=== PATIENT | male | born 1930 | race American Indian/Alaskan Native ===

== ENCOUNTER 2016-08-06 07:53 | Inpatient (IN) | payer MEDICARE ==
[2016-08-06] MEDS ORDERED: NACL 0.9% 1000 ML 1,000 ML IV ONE (08:39)
[2016-08-06 09:43] LABS: Basophils % (Auto) 0.5 % (0.0-1.8); Eosinophils % (Auto) 3.5 % (0.0-4.3); Hematocrit 40.2 % (35.5-45.6); Hemoglobin 13.3 gm/dl (11.8-15.2); Mean Corpuscular HGB Conc 33 % (32-34); Mean Corpuscular Hemoglobin 34 pg (28-32); Mean Corpuscular Volume 102 fl (84-94); Platelet Count 121 K/mm3 (140-440); Red Blood Count 3.95 M/mm3 (3.65-5.03); Red Cell Distribution Width 13.2 % (13.2-15.2); White Blood Count 4.8 K/mm3 (4.5-11.0)
[2016-08-06 09:53] LABS: INR 1.09 (0.87-1.13)
[2016-08-06 09:54] LABS: Partial Thromboplastin Time 27.5 Sec. (24.2-36.6)
[2016-08-06 09:58] LABS: Alanine Aminotransferase 13 units/L (7-56); Albumin 3.6 g/dL (3.9-5); Albumin/Globulin Ratio 1.1 %; Alkaline Phosphatase 89 units/L (35-129); Anion Gap 14 mmol/L; Bilirubin,Total 0.6 mg/dL (0.1-1.2); Blood Urea Nitrogen 18 mg/dL (9-20); Calcium 9.7 mg/dL (8.4-10.2); Carbon Dioxide 29 mmol/L (22-30); Chloride 101.3 mmol/L (98-107); Glucose 197 mg/dL (75-100); Lipase 53 units/L (13-60); Potassium 4.2 mmol/L (3.6-5.0); Sodium 140 mmol/L (137-145); Total Protein 6.9 g/dL (6.3-8.2)
--- NOTE | 2016-08-06 21:45 | Emergency Department Report ---
ED GI Bleed HPI - General Chief complaint: GI Bleed Stated complaint: RECTAL BLEEDING Time Seen by Provider: 08/06/16 21:42 Source: patient, RN notes reviewed, old records reviewed Mode of arrival: Ambulatory Limitations: No Limitations - History of Present Illness Initial comments: This is an 86-year-old male, previously unknown to me. His primary care doctor is Dr. John Jeffers. Has a past medical history of diverticulosis, hypertension. Reports last colonoscopy was in 2007. Does not recall the last result. Presents to the ER with bright red blood per rectum for one day. Started today. It is painless. There is no headache, chest pain, abdominal pain, nausea, vomiting, hematemesis. Symptoms are constant. There painless. They have no exacerbating or relieving factors. Case is discussed with gastroenterology on-call, Dr. Magaña. His group will follow as a consult. Case is discussed with the Hospital physician, Dr. Peng, he accepts the patient to his service. MD complaint: gross hematochezia -: Gradual, hour(s) Quality: painless Consistency: constant Improves with: none Worsens with: none Context: history of GI bleed Associated Symptoms: denies: abdominal pain, nausea, vomiting, epistaxis, fever/ chills, headaches, loss of appetite, malaise, easy bruising, rash, other bleeding, shortness of breath, syncope, weakness - Related Data Home Medications Medication Instructions Recorded Confirmed Last Taken Aspirin [Baby Aspirin] 81 mg PO QDAY 04/07/13 08/06/16 05/13/14 09:30 Atorvastatin [Lipitor Tab] 40 mg PO QDAY 04/07/13 08/06/16 05/13/14 09:30 Carvedilol [Coreg] 12.5 mg PO BID 04/07/13 08/06/16 05/13/14 09:30 Lisinopril/Hydrochlorothiazide 1 tab PO QDAY 04/07/13 08/06/16 05/13/14 09:30 [Zestoretic 20-12.5 mg] Ranolazine [Ranexa] 1,000 mg PO QDAY 04/07/13 08/06/16 05/13/14 09:30 Previous Rx's Medication Instructions Recorded Last Taken Type amLODIPine [Norvasc] 10 mg PO DAILY #30 tab 03/01/16 Unknown Rx Allergies Allergy/AdvReac Type Severity Reaction Status Date / Time No Known Allergies Allergy Verified 08/06/16 08:34 ED Review of Systems ROS: Stated complaint: RECTAL BLEEDING Other details as noted in HPI Constitutional: denies: fever Eyes: denies: eye discharge, vision change ENT: denies: epistaxis Respiratory: denies: cough Cardiovascular: denies: chest pain Gastrointestinal: hematochezia. denies: abdominal pain Genitourinary: denies: urgency, dysuria Musculoskeletal: denies: back pain Skin: denies: lesions Neurological: denies: headache, weakness ED Past Medical Hx - Past Medical History Hx Hypertension: Yes Hx CVA: No Hx Heart Attack/AMI: Yes Hx Congestive Heart Failure: No Hx Diabetes: No Hx Deep Vein Thrombosis: No Hx Pulmonary Embolism: No Hx GERD: No Hx Liver Disease: No Hx Renal Disease: No Hx Sickle Cell Disease: No Hx Arthritis: No Hx Headaches / Migraines: No Hx Seizures: No Hx Kidney Stones: No Hx Psychiatric Treatment: No Hx Asthma: No Hx COPD: No Hx Tuberculosis: No Hx Dementia: No Hx HIV: No Additional medical history: coronary artery disease - Surgical History Hx Coronary Stent: Yes Hx Open Heart Surgery: No Hx Pacemaker: No Hx Internal Defibrillator: No Hx Cholecystectomy: No Hx Appendectomy: No Hx Breast Surgery: No Additional Surgical History: bypass - Social History Smoking Status: Never Smoker Substance Use Type: None - Medications Home Medications: Home Medications Medication Instructions Recorded Confirmed Last Taken Type Aspirin [Baby Aspirin] 81 mg PO QDAY 04/07/13 08/06/16 05/13/14 09:30 History Atorvastatin [Lipitor Tab] 40 mg PO QDAY 04/07/13 08/06/16 05/13/14 09:30 History Carvedilol [Coreg] 12.5 mg PO BID 04/07/13 08/06/16 05/13/14 09:30 History Lisinopril/Hydrochlorothiazide 1 tab PO QDAY 04/07/13 08/06/16 05/13/14 09:30 History [Zestoretic 20-12.5 mg] Ranolazine [Ranexa] 1,000 mg PO QDAY 04/07/13 08/06/16 05/13/14 09:30 History amLODIPine [Norvasc] 10 mg PO DAILY #30 tab 03/01/16 08/06/16 Unknown Rx ED Physical Exam - General Limitations: No Limitations General appearance: alert, in no apparent distress - Head Head exam: Present: atraumatic, normocephalic - Eye Eye exam: Present: normal appearance, EOMI. Absent: nystagmus - ENT ENT exam: Present: normal exam, normal orophraynx, mucous membranes moist - Neck Neck exam: Present: normal inspection, full ROM. Absent: tenderness, meningismus - Respiratory Respiratory exam: Present: normal lung sounds bilaterally. Absent: respiratory distress, wheezes, rales, rhonchi, stridor, chest wall tenderness - Cardiovascular Cardiovascular Exam: Present: regular rate, normal rhythm, normal heart sounds. Absent: bradycardia, tachycardia, irregular rhythm, systolic murmur, diastolic murmur, rubs, gallop - GI/Abdominal GI/Abdominal exam: Present: soft, normal bowel sounds. Absent: distended, tenderness, guarding, rebound, rigid, pulsatile mass - Rectal Rectal exam: Present: normal inspection, heme (+) stool, bloody stool - Extremities Exam Extremities exam: Present: normal inspection, full ROM, normal capillary refill. Absent: tenderness, pedal edema, joint swelling, calf tenderness - Back Exam Back exam: Present: normal inspection, full ROM. Absent: tenderness, CVA tenderness (R), CVA tenderness (L), muscle spasm, paraspinal tenderness, vertebral tenderness - Neurological Exam Neurological exam: Present: alert, oriented X3, normal gait, other (Extraocular movements intact. Tongue midline. No facial droop. Facial sensation intact to light touch in the V1, V2, V3 distribution bilaterally. 5 and 5 strength in 4 extremities.. Sensation is intact to light touch in 4 extremities.). Absent : motor sensory deficit - Psychiatric Psychiatric exam: Present: normal affect, normal mood - Skin Skin exam: Present: warm, dry, intact, normal color. Absent: rash ED Course Vital Signs 08/06/16 08/06/16 08/06/16 08:25 23:01 23:04 Temperature 98.5 F Pulse Rate 60 62 61 Respiratory 19 18 18 Rate Blood Pressure 175/75 Blood Pressure 191/60 [Left] O2 Sat by Pulse 98 Oximetry 08/06/16 08/06/16 08/06/16 23:05 23:23 23:30 Temperature Pulse Rate 62 61 Respiratory 18 17 19 Rate Blood Pressure 191/60 169/84 Blood Pressure [Left] O2 Sat by Pulse Oximetry 08/07/16 08/07/16 08/07/16 00:01 00:30 00:31 Temperature Pulse Rate 58 L 58 L 56 L Respiratory 19 19 19 Rate Blood Pressure 182/88 182/98 182/98 Blood Pressure [Left] O2 Sat by Pulse Oximetry 08/07/16 08/07/16 08/07/16 01:01 01:30 02:00 Temperature Pulse Rate 56 L 53 L 74 Respiratory 15 16 17 Rate Blood Pressure 160/74 165/80 199/94 Blood Pressure [Left] O2 Sat by Pulse Oximetry 08/07/16 08/07/16 08/07/16 02:31 03:01 03:30 Temperature Pulse Rate 58 L 60 60 Respiratory 15 15 18 Rate Blood Pressure 153/73 135/70 119/74 Blood Pressure [Left] O2 Sat by Pulse Oximetry 08/07/16 08/07/16 04:01 04:30 Temperature Pulse Rate 59 L 61 Respiratory 18 15 Rate Blood Pressure 162/74 134/71 Blood Pressure [Left] O2 Sat by Pulse Oximetry - Reevaluation(s) Reevaluation #1: 08/06/16 23:03 Differential diagnosis: Internal hemorrhoids, diverticulosis, malignancy, angiodysplasia Assessment and plan: 86-year-old male with painless bright red blood per rectum. Most likely recurrent diverticulosis. Given his advanced age, but red blood per rectum, medical comorbidities, patient to be admitted. ED Medical Decision Making - Lab Data Result diagrams: 08/06/16 09:16 08/06/16 09:16 Vital Signs 08/06/16 08:25 Temperature 98.5 F Pulse Rate 60 Respiratory 19 Rate Blood Pressure 175/75 O2 Sat by Pulse 98 Oximetry Lab Results 08/06/16 08/06/16 08/06/16 Range/Units 09:16 09:16 09:16 WBC 4.8 (4.5-11.0) K/mm3 RBC 3.95 (3.65-5.03) M/mm3 Hgb 13.3 (11.8-15.2) gm/dl Hct 40.2 (35.5-45.6) % MCV 102 H (84-94) fl MCH 34 H (28-32) pg MCHC 33 (32-34) % RDW 13.2 (13.2-15.2) % Plt Count 121 L (140-440) K/mm3 Lymph % (Auto) 33.2 (13.4-35.0) % Brown % (Auto) 7.5 H (0.0-7.3) % Eos % (Auto) 3.5 (0.0-4.3) % Baso % (Auto) 0.5 (0.0-1.8) % Lymph # 1.6 (1.2-5.4) K/mm3 Brown # 0.4 (0.0-0.8) K/mm3 Eos # 0.2 (0.0-0.4) K/mm3 Baso # 0.0 (0.0-0.1) K/mm3 Seg Neutrophils % 55.3 (40.0-70.0) % Seg Neutrophils # 2.7 (1.8-7.7) K/mm3 PT 14.0 (12.2-14.9) Sec. INR 1.09 (0.87-1.13) APTT 27.5 (24.2-36.6) Sec. Carbon Dioxide 29 (22-30) mmol/L BUN 18 (9-20) mg/dL Creatinine 1.0 (0.8-1.5) mg/dL Estimated GFR > 60 ml/min BUN/Creatinine Ratio 18.00 % Glucose 197 H (75-100) mg/dL Calcium 9.7 (8.4-10.2) mg/dL Total Bilirubin 0.6 (0.1-1.2) mg/dL AST 18 (5-40) units/L ALT 13 (7-56) units/L Alkaline Phosphatase 89 (35-129) units/L Total Protein 6.9 (6.3-8.2) g/dL Albumin 3.6 L (3.9-5) g/dL Albumin/Globulin Ratio 1.1 % Lipase 53 (13-60) units/L Blood Type Antibody Screen 08/06/16 Range/Units 09:16 WBC (4.5-11.0) K/mm3 RBC (3.65-5.03) M/mm3 Hgb (11.8-15.2) gm/dl Hct (35.5-45.6) % MCV (84-94) fl MCH (28-32) pg MCHC (32-34) % RDW (13.2-15.2) % Plt Count (140-440) K/mm3 Lymph % (Auto) (13.4-35.0) % Brown % (Auto) (0.0-7.3) % Eos % (Auto) (0.0-4.3) % Baso % (Auto) (0.0-1.8) % Lymph # (1.2-5.4) K/mm3 Brown # (0.0-0.8) K/mm3 Eos # (0.0-0.4) K/mm3 Baso # (0.0-0.1) K/mm3 Seg Neutrophils % (40.0-70.0) % Seg Neutrophils # (1.8-7.7) K/mm3 PT (12.2-14.9) Sec. INR (0.87-1.13) APTT (24.2-36.6) Sec. Carbon Dioxide (22-30) mmol/L BUN (9-20) mg/dL Creatinine (0.8-1.5) mg/dL Estimated GFR ml/min BUN/Creatinine Ratio % Glucose (75-100) mg/dL Calcium (8.4-10.2) mg/dL Total Bilirubin (0.1-1.2) mg/dL AST (5-40) units/L ALT (7-56) units/L Alkaline Phosphatase (35-129) units/L Total Protein (6.3-8.2) g/dL Albumin (3.9-5) g/dL Albumin/Globulin Ratio % Lipase (13-60) units/L Blood Type O POSITIVE Antibody Screen Negative Vital Signs 08/06/16 08:25 Temperature 98.5 F Pulse Rate 60 Respiratory 19 Rate Blood Pressure 175/75 O2 Sat by Pulse 98 Oximetry Critical care attestation.: If time is entered above; I have spent that time in minutes in the direct care of this critically ill patient, excluding procedure time. ED Disposition Clinical Impression: GI bleed Disposition: OP ADMITTED IP TO THIS HOSP Is pt being admited?: Yes Does the pt Need Aspirin: No Condition: Good
--- NOTE | 2016-08-06 22:03 | Admit Criteria Form ---
Admission Criteria Documentation: GASTROINTESTINAL BLEEDING, LOWER Clinical Indications for Admission to Inpatient Care ( Place 'X' for any and all applicable criteria): Admission is indicated for ANY ONE of the following(1)(2)(3)(4)(5): [X ]I. Active gross bleeding per rectum [ ]II. Inpatient admission required rather than observation care (Also use Gastrointestinal Bleeding, Lower: Observation Care as appropriate) because of ANY ONE of the following: [ ]a) Hemodynamic instability that is severe or persistent [ ]b) Anemia requiring inpatient admission as indicated by ALL of the following: [ ]1) Presence of significant clinical finding indicated by ANY ONE of the following: [ ]A. Tachycardia for age [ ]B. Orthostatic vital sign changes [ ]C. Cognitive impairment [ ]D. Heart failure [ ]E. Chest pain [ ]F. Exertional dyspnea [ ]G. Other findings suggesting inadequate perfusion (eg, peripheral or myocardial ischemia, end organ dysfunction) [ ]2) Initial (eg, emergency department, observation care) treatment with transfusion or volume replacement is judged inappropriate (due to severity of the finding) or has been ineffective [ ]c) Severe pain requiring acute inpatient management [ ]d) Absent bowel sounds with complete ileus [ ]e) Signs of intestinal obstruction or peritonitis [A] [ ]f) High-risk low platelet count [ ]g) Severe electrolyte abnormalities requiring inpatient care [ ]h) Acute renal failure [ ]i) High fever or infection requiring inpatient admission as indicated by ANY ONE of the following(8)(9): [ ]1) Appropriate outpatient or observation care antimicrobial treatment unavailable, not effective, or not feasible Documented bacteremia [ ]2) Documented bacteremia [ ]3) Temperature greater than 104.9 degrees F ( 40.5 degrees C) (oral) [ ]4) Temperature greater than 103.1 degrees F ( 39.5 degrees C) (oral) or less than 96.8 degrees F (36 degrees C) (rectal) that does not respond to all emergency treatment measures [ ]j) IV fluid to replace significant ongoing losses ( greater than 3 L/m2 per day) [ ]k) Immediate inpatient surgery needed [ ]l) Parenteral nutrition regimen that must be implemented on inpatient basis [ ]m) Other condition, treatment or monitoring requiring inpatient admission [ ]III. Unstable comorbid illness (renal, hepatic, pulmonary, hematologic, neurologic, or cardiac) [ ]IV. Failure to control bleeding after colonoscopy [ ]V. Coagulopathy [ ]. Suspected or known ischemic colitis(6) [ ]VII. Previous aortic graft placement or known aortic aneurysm Extended stay beyond goal length of stay may be needed for(3)(4)(28): [ ]a) Emergency surgery [ ]b) Coagulation abnormalities(26) [ ]c) Recurrent or persistent bleeding, continued vital sign instability(27)( 28) [ ]d) Active comorbidities (eg, renal insufficiency, heart failure, pre- existing liver disease) The original [employer] content created by [employer] has been revised. The portions of the content which have been revised are identified through the use of italic text or in bold, and [facility] has neither reviewed nor approved the modified material. All other unmodified content is copyright [employer]. Please see references footnoted in the original [employer] edition 2016 Admission Criteria Met: Pending
--- NOTE | 2016-08-06 22:49 | History and Physical Report ---
History of Present Illness Chief complaint: blood in stool History of present illness: 86 YO Male with HTN, AL, CAD S/P CABG, Diverticulosis, Obesity, presents to ED for evaluation. Pt states that he has experienced large blood in his stool. Pt states that symptoms began today. Pt denies fever, chills, CP, Palpitation, Syncope, Abdominal Pain, recent ill contacts, ingestion of food/water from new or different sources, or recent foreign travel. Past History Past Medical History: acute AL, CAD, hypertension Past Surgical History: Other (CABG) Social history: , lives with family. denies: smoking, alcohol abuse, prescription drug abuse Family history: hypertension Medications and Allergies Allergies Allergy/AdvReac Type Severity Reaction Status Date / Time No Known Allergies Allergy Verified 08/06/16 08:34 Home Medications Medication Instructions Recorded Confirmed Last Taken Type Aspirin [Baby Aspirin] 81 mg PO QDAY 04/07/13 08/06/16 05/13/14 09:30 History Atorvastatin [Lipitor Tab] 40 mg PO QDAY 04/07/13 08/06/16 05/13/14 09:30 History Carvedilol [Coreg] 12.5 mg PO BID 04/07/13 08/06/16 05/13/14 09:30 History Lisinopril/Hydrochlorothiazide 1 tab PO QDAY 04/07/13 08/06/16 05/13/14 09:30 History [Zestoretic 20-12.5 mg] Ranolazine [Ranexa] 1,000 mg PO QDAY 04/07/13 08/06/16 05/13/14 09:30 History amLODIPine [Norvasc] 10 mg PO DAILY #30 tab 03/01/16 08/06/16 Unknown Rx Review of Systems All systems: negative Constitutional: other (blood in stool) Exam - Constitutional Vitals: Temp Pulse Resp BP Pulse Ox 98.5 F 60 19 175/75 98 08/06/16 08:25 08/06/16 08:25 08/06/16 08:25 08/06/16 08:25 08/06/16 08:25 General appearance: Present: no acute distress, well-nourished - EENT Eyes: Present: PERRL ENT: hearing intact, clear oral mucosa - Neck Neck: Present: supple, normal ROM - Respiratory Respiratory effort: normal Respiratory: bilateral: CTA - Cardiovascular Heart Sounds: Present: S1 & S2. Absent: rub, click - Extremities Extremities: pulses symmetrical, No edema Peripheral Pulses: within normal limits - Abdominal General gastrointestinal: Present: soft, non-tender, non-distended, normal bowel sounds Male genitourinary: Present: normal - Integumentary Integumentary: Present: clear, warm, dry - Musculoskeletal Musculoskeletal: gait normal, strength equal bilaterally - Psychiatric Psychiatric: appropriate mood/affect, intact judgment & insight - Neurologic Neurologic: CNII-XII intact, moves all extremities Results - Labs CBC & Chem 7: 08/06/16 09:16 08/06/16 09:16 Labs: Abnormal lab results 08/06/16 08/06/16 Range/Units 09:16 09:16 MCV 102 H (84-94) fl MCH 34 H (28-32) pg Plt Count 121 L (140-440) K/mm3 Tyler % (Auto) 7.5 H (0.0-7.3) % Glucose 197 H (75-100) mg/dL Albumin 3.6 L (3.9-5) g/dL Assessment and Plan - Patient Problems (1) GI bleed Current Visit: Yes Status: Acute Plan to address problem: GI consulted, GI bleed protocol: PPI therapy, hgb stable, no transfusion at this time. (2) Accelerated hypertension Current Visit: Yes Status: Acute Plan to address problem: monitor bp q shift, (3) CAD (coronary artery disease) Current Visit: Yes Status: Acute Plan to address problem: No angina at this time. currently stable (4) DVT prophylaxis Current Visit: Yes Status: Acute
[2016-08-07] MEDS ORDERED: TYLENOL PO PRN (01:10)
[2016-08-07] MEDS ORDERED: NACL 0.45% 1000 ML 1,000 ML IV SCH (02:00)
[2016-08-07] MEDS ORDERED: PROTONIX IV SCH (10:00)
[2016-08-07] MEDS ORDERED: HCTZ PO SCH (10:00)
[2016-08-07] MEDS ORDERED: NORVASC PO SCH (10:00)
[2016-08-07] MEDS ORDERED: RANEXA ER PO SCH (10:00)
[2016-08-07] MEDS ORDERED: ZESTRIL PO SCH (10:00)
[2016-08-07] MEDS ORDERED: COREG PO SCH (10:00)
[2016-08-07 10:40] LABS: Hemoglobin 13.5 gm/dl (11.8-15.2)
--- NOTE | 2016-08-07 11:02 | Discharge Summary ---
Providers - Providers Date of Admission: 08/07/16 01:10 Date of discharge: 08/07/16 Attending physician: ELOINA SCHWARTZ MD Primary care physician: MAURICIO DELUCA Hospitalization Reason for admission: rectal bleed Condition: Stable Hospital course: Patient is an 86-year-old male with history of hypertension, [place], CAD status post CABG, diverticulosis, obesity and presented to the ER complaining of blood in the stool although it is documented that this was a large blood when I spoke to the patient stated that it was not a lot of blood and was more on the toilet paper. The was able to quantify because she did not see it. In any case the patient denies any nausea, vomiting, diarrhea he does take aspirin daily and denies any dizziness associated with this. He was admitted to the hospital for further evaluation his repeat hemoglobin also was stable. Blood pressure was stable he's hemodynamically stable to discharge for further examination it appears he does have external hemorrhoid which is notably this point. I does leak with GI on the side and was able to arrange for follow-up outpatient. Family and patient was agreeable to this and followed with GI outpatient for repeat evaluation. Conjunctival discharge Discharge diagnoses * Rectal bleeding likely hemorrhoidal * CAD * S/P CABG * Hypertension Disposition: DISCHARGED TO HOME OR SELFCARE Time spent for discharge: 35 mins Core Measure Documentation - Palliative Care Palliative Care/ Comfort Measures: Not Applicable - Core Measures Any of the following diagnoses?: none - VTE Discharge Requirements Deep Vein Thrombosis/Pulmonary Embolism Present on Admission: No Exam - Physical Exam Narrative exam: VITAL SIGNS: Reviewed. GENERAL: The patient appeared well nourished and normally developed. Vital signs as documented. HEAD: No signs of head trauma. EYES: Pupils are equal. Extraocular motions intact. EARS: Hearing grossly intact. MOUTH: Oropharynx is normal. NECK: No adenopathy, no JVD. CHEST: Chest with clear breath sounds bilaterally. No wheezes, rales, or rhonchi. CARDIAC: Regular rate and rhythm. S1 and S2, without murmurs, gallops, or rubs. VASCULAR: No Edema. Peripheral pulses normal and equal in all extremities. ABDOMEN: Soft, without detectable tenderness. No sign of distention. No rebound or guarding, and no masses palpated. Bowel Sounds normal. MUSCULOSKELETAL: Good range of motion of all major joints. Extremities without clubbing, cyanosis or edema. NEUROLOGIC EXAM: Alert and oriented x 3. No focal sensory or strength deficits. Speech normal. Follows commands. PSYCHIATRIC: Mood normal. SKIN: No rash or lesions. - Constitutional Vitals: Temp Pulse Resp BP Pulse Ox 97.8 F 57 L 18 143/72 96 08/07/16 09:17 08/07/16 09:35 08/07/16 09:17 08/07/16 09:35 08/07/16 09:17 Plan Activity: advance as tolerated, fall precautions Diet: diabetic Follow up with: MAURICIO DELUCA MD [Primary Care Provider] - 3-5 Days LIZET ANAYA MD [Staff Physician] - 7 Days Forms: Accompanied Note Prescriptions: Psyllium Husk/Aspartame [Metamucil Fiber Singles Packet] 3.4 gm PO DAILY 30 Days
[2016-08-07 16:07] VITALS: BP 136/78
== END 2016-08-07 13:00 | disposition home or self-care (01) | DRG 395 ==
LOC: ED 07:53 → 3A 08-07 01:10 → 2B-SURG 08-07 05:43
PROVIDERS: ADMIT Internal Medicine; ATTEND Internal Medicine
DX: K64.4 Residual hemorrhoidal skin tags (principal); I10 Essential (primary) hypertension; I25.10 Atherosclerotic heart disease of native coronary artery without angina pectoris; K57.90 Diverticulosis of intestine, part unspecified, without perforation or abscess without bleeding; E66.9 Obesity, unspecified; Z79.82 Long term (current) use of aspirin; Z79.899 Other long term (current) drug therapy; I25.2 Old myocardial infarction; Z95.5 Presence of coronary angioplasty implant and graft; Z95.1 Presence of aortocoronary bypass graft; Z68.33 Body mass index [BMI] 33.0-33.9, adult; Z82.49 Family history of ischemic heart disease and other diseases of the circulatory system
CPT/HCPCS: 36415; 80053; 82271; 83690; 85014; 85018; 85025; 85610; 85730; 86850; 86900; 86901; A9270-GY; C9113

== ENCOUNTER 2016-12-15 10:35 | Day surgery (SDC) | payer MEDICARE ==
[2016-12-15] MEDS ORDERED: NACL 0.9% 1000 ML 1,000 ML IV SCH (11:00)
--- NOTE | 2016-12-15 11:13 | Anesthesia Day of Surgery ---
Anesthesia Day of Surgery - Day of Surgery Patient Examined: Yes Patient H&P Reviewed: Yes Patient is NPO: Yes
[2016-12-15] MEDS ORDERED: DIPRIVAN 10 MG/ML IV ONE ×2 (11:14)
--- NOTE | 2016-12-15 11:14 | Anesthesia Consultation ---
Anesthesia Consult and Med Hx Date of service: 12/15/16 - Airway Anesthetic Teeth Evaluation: Good ROM Head & Neck: Adequate Mental/Hyoid Distance: Adequate Mallampati Class: Class II Intubation Access Assessment: Probably Good - Pulmonary Exam CTA: Yes - Cardiac Exam Cardiac Exam: RRR - Pre-Operative Health Status ASA Pre-Surgery Classification: ASA3 Proposed Anesthetic Plan: General - Pulmonary Hx Asthma: No COPD: No - Cardiovascular System Hx Hypertension: Yes Hx Heart Attack/AMI: Yes Hx Percutaneous Transluminal Coronary Angioplasty (PTCA): Yes Hx Pacemaker: No Hx Internal Defibrillator: No - Central Nervous System Hx Seizures: No Hx Psychiatric Problems: No - Endocrine Hx Renal Disease: No Hx Liver Disease: No Hx Non-Insulin Dependent Diabetes: Yes - Hematic Hx Sickle Cell Disease: No - Other Systems Hx Cancer: No
--- NOTE | 2016-12-15 11:25 | Short Stay Summary ---
Short Stay Documentation Date of service: 12/15/16 Narrative H&P: 86 year old presents for colonoscopy for evaluation of hematochezia. - History Principal diagnosis: hematochezia H&P: obtained from office Past Medical History: arrhythmia, heart failure, other (cataract, irritiable bowell syndrome) Past Surgical History: Other (pacemaker) Social history: - Allergies and Medications Current Medications: Allergies No Known Allergies Allergy (Verified 08/06/16 08:34) Home Medications Medication Instructions Recorded Confirmed Last Taken Type Aspirin [Aspirin BABY CHEW TAB] 81 mg PO QDAY 04/07/13 12/15/16 05/13/14 09:30 History Atorvastatin [Lipitor] 40 mg PO QDAY 04/07/13 12/15/16 05/13/14 09:30 History Carvedilol [Coreg] 12.5 mg PO BID 04/07/13 12/15/16 12/13/16 History Lisinopril/Hydrochlorothiazide 1 tab PO QDAY 04/07/13 12/15/16 12/15/16 History [Zestoretic 20-12.5 mg] Ranolazine [Ranexa] 1,000 mg PO QDAY 04/07/13 12/15/16 12/13/16 History amLODIPine [Norvasc] 10 mg PO DAILY #30 tab 03/01/16 12/15/16 Unknown Rx Psyllium Husk/Aspartame [Metamucil 3.4 gm PO DAILY 30 Days 08/07/16 12/15/16 Unknown Rx Fiber Singles Packet] Tamsulosin 4 mg PO DAILY 12/15/16 12/15/16 12/13/16 History metFORMIN 500 mg PO DAILY 12/15/16 12/15/16 12/13/16 History Active Medications Sodium Chloride (Nacl 0.9% 1000 Ml) 1,000 mls @ 50 mls/hr IV DIRECT BROOKE Last Admin: 12/15/16 11:16 Dose: 50 mls/hr - Physical exam General appearance: no acute distress, well-nourished HEENT: PERRLA, EOMI Lungs: Clear to auscultation Heart: Normal S1, Normal S2, Other (occasional premature beat) Gastrointestinal: normal, no tenderness, no distended, no masses, no hepatomegaly, no splenomegaly, obese Neurological: Normal speech - Hospital course Hospital course: Uneventful colonoscopy. - Disposition Condition at discharge: Good Disposition: DISCHARGED TO HOME OR SELFCARE - Discharge Diagnoses (1) Diverticulosis Status: Chronic Qualifiers: Diverticulosis site: D Diverticulosis bleeding: D (2) Internal hemorrhoids Status: Chronic (3) Hematochezia Status: Acute Comment: likely hemorrhoidal Short Stay Discharge Plan Activity: other (no driving today) Diet: regular Additional Instructions: Follow up with primary MD. Follow up with our office prn. Follow up with: MAURICIO DELUCA MD [Primary Care Provider] - 7 Days
[2016-12-15] MEDS ORDERED: XYLOCAINE MPF 2% ONE (11:30)
--- NOTE | 2016-12-15 11:58 | Operative Report ---
Operative Report Operative Report: Date of procedure: 12/15/2016 Preprocedure diagnosis: Hematochezia Post procedure diagnosis: Diverticulosis and internal hemorrhoids, no active bleeding Procedure name(s): Colonoscopy Surgeon: Braulio Real MD Anesthesia: Monitored anesthesia care EBL: None Procedure: The indications, techniques, potential complications and alternatives , had been discussed in full detail prior to the date of the exam, and once again on the day of the exam. Questions were encouraged and answered, and consent was thereby obtained. The patient was placed in the left lateral decubitus position, and was medicated by anesthesia services. See the anesthesia records for details. The anal sphincter was digitally dilated. The digital exam was unremarkable. The tip of a [employer] video colonoscope was inserted through the anal sphincter and into the rectal vault. It was then advanced proximally under continuous visualization of the lumen to the cecum without difficulty. The prep was good and landmarks were identified easily. No pathology was seen in the cecum. The appendiceal orifice and ileocecal valve appeared normal. From the cecum, the instrument was slowly withdrawn with careful circumferential examination of the colonic mucosa. No pathology was seen in the ascending colon. A few diverticula were seen in the hepatic flexure. No pathology was seen in the transverse colon, splenic flexure or descending colon. Additional diverticula were seen in the sigmoid colon. No neoplastic lesions or inflammatory lesions were seen at any point. The rectum appeared normal from the forward view. Retroflexion revealed prominent but nonbleeding internal hemorrhoids. The instrument was straightened and withdrawn. The procedure was very well tolerated. Post procedure he was monitored in the recovery area of the GI lab to ensure stability prior to his release. See the outpatient record for details regarding instructions to patient, medications and plans for follow-up. Final diagnosis: 1. Diverticulosis coli 2. Internal hemorrhoids, likely source of occasional hematochezia Braulio Real M.D. Dictated 12/15/2016 at 11:54 AM
--- NOTE | 2016-12-15 12:13 | Post Anesthesia Evaluation ---
- Post Anesthesia Evaluation Patient Participated: Yes Airway Patent: Yes Stable Respiratory Function: Yes Nausea/Vomiting: No Temp > 96.8F: Yes Pain Manageable: Yes Adequeate Hydration: Yes Block Receding Appropriately: Not Applicable Patient on Ventilator: No
[2016-12-15 12:55] VITALS: BP 144/72
== END 2016-12-15 10:36 | disposition home or self-care (01) ==
LOC: GIO 10:35
PROVIDERS: ATTEND Internal Medicine Gastroenterology
DX: K57.30 Diverticulosis of large intestine without perforation or abscess without bleeding (principal); K64.8 Other hemorrhoids; I10 Essential (primary) hypertension; E11.9 Type 2 diabetes mellitus without complications; Z98.61 Coronary angioplasty status; Z95.0 Presence of cardiac pacemaker; Z79.84 Long term (current) use of oral hypoglycemic drugs; Z79.899 Other long term (current) drug therapy
CPT/HCPCS: 45378; 82962; J2704; J7030

== ENCOUNTER 2017-05-22 06:09 | Day surgery (SDC) | payer MEDICARE ==
[2017-05-22] MEDS ORDERED: ECOTRIN PO ONE (07:16)
[2017-05-22 07:57] LABS: INR 1.12 (0.87-1.13)
[2017-05-22] MEDS ORDERED: NACL 0.9% 500 ML 500 ML IV SCH (08:00)
[2017-05-22 08:34] LABS: Basophils % (Auto) 0.5 % (0.0-1.8); Eosinophils % (Auto) 2.6 % (0.0-4.3); Hematocrit 39.2 % (35.5-45.6); Mean Corpuscular HGB Conc 33 % (32-34); Mean Corpuscular Hemoglobin 34 pg (28-32); Mean Corpuscular Volume 102 fl (84-94); Platelet Count 136 K/mm3 (140-440); Red Blood Count 3.84 M/mm3 (3.65-5.03); Red Cell Distribution Width 13.1 % (13.2-15.2); White Blood Count 4.8 K/mm3 (4.5-11.0)
[2017-05-22 08:50] LABS: Anion Gap 10 mmol/L; BUN/Creatinine Ratio 15; Blood Urea Nitrogen 17 mg/dL (9-20); Calcium 9.5 mg/dL (8.4-10.2); Carbon Dioxide 32 mmol/L (22-30); Chloride 99.9 mmol/L (98-107); Glucose 235 mg/dL (75-100); Potassium 4.2 mmol/L (3.6-5.0); Sodium 138 mmol/L (137-145)
[2017-05-22] MEDS ORDERED: HEPARIN/NS 5000 UNIT/500ML(CATH LAB) 1,000 ML IR ONE (08:55)
[2017-05-22] MEDS ORDERED: HEPARIN 10,000 UNITS/10 ML ONE (08:55)
[2017-05-22] MEDS ORDERED: NITROGLYCERIN SYRINGE 3 ML ONE (08:55)
[2017-05-22] MEDS ORDERED: CALAN ONE (08:55)
[2017-05-22] MEDS: SUBLIMAZE ONE ×2 (09:02→09:09)
[2017-05-22] MEDS: VERSED ONE ×2 (09:02→09:09)
[2017-05-22] MEDS: XYLOCAINE 2% INFILTRATI ONE ×2 (09:02→09:09)
--- NOTE | 2017-05-22 10:01 | Cardiac Catherization Report ---
REFERRING PHYSICIAN: Dr. Hinton. INDICATION FOR PROCEDURE: The patient is a very pleasant 87-year-old -[place] gentleman referred by Dr. Hinton with history of coronary artery disease, markedly abnormal stress test, chest pain, referred for left heart catheterization. Risks, benefits, and potential alternatives explained at length prior to obtaining informed consent. PROCEDURE IN DETAIL: The patient was brought to the catheter finisher and inspector in a post-absorptive state, prepped and draped in sterile fashion. Kevin's test in right hand was normal. A 2 mL of 2% lidocaine used to anesthetize the right wrist. A standard 6-Zimbabwean hydrophilic sheath used to cannulate the right radial artery via modified Seldinger technique. All exchanges performed to exchange a J-tip guidewire. JL3.5 catheter used to engage left main. No dampening or ventricularization. Cineangiography performed in all projections. JR4 catheter used to cross the aortic valve under fluoroscopic guidance. Left ventriculography performed in 30 ZARAGOZA and 30 LOUISE projections via hand injections. Catheter flushed. Manual pullback performed with continuous pressure monitoring. Catheter used to engage the right coronary. No dampening or ventricularization. Cineangiography performed in all projections. Catheter removed from the body of wire, sheath removed. Manual pressure used to achieve hemostasis. DATA: Aortic pressure is 160/80, LV pressure is 160, LVEDP of 15 mmHg. Left ventriculography reveals normal systolic performance with estimated ejection fraction of 55% to 60%. No evidence of aortic stenosis. CORONARY ANATOMY: This is a right dominant system. Right coronary has a proximal chronic total occlusion with extensive right to right and right to left collaterals identified. Left main without significant disease, bifurcates left anterior descending and left circumflex. There is a 99% ostial left circumflex stenosis. There is a 99% ostial high OM1 stenosis, which is involved in the ostial left circumflex stenosis, stents in the OM1 stenosis with severe diffuse in-stent restenosis with HERMAN 2 flow. Left to left collaterals identified, 80% mid LAD stenosis also identified. Extensive left to left and left to right collaterals identified. CONCLUSIONS: Severe and diffuse triple vessel coronary artery disease including 99% ostial left circumflex 99% ostial OM1 high takeoff. JOB# [id number] SBM/MANI
--- NOTE | 2017-05-22 10:06 | Cardiac Catherization Report ---
ADDENDUM CONCLUSIONS: 1. Severe and diffuse triple vessel coronary artery disease including ostial left circumflex, ostial OM1, 80% mid LAD, chronic total occlusion of proximal right coronary with extensive left to left and left to right collaterals. 2. Preserved left ventricular systolic performance. 3. No evidence of aortic stenosis. At this point, recommend complete revascularization. He is relatively healthy for 87. All the options were discussed. We will proceed with transfer to [facility] for evaluation for coronary bypass surgery. I have discussed with Dr. Krishna Echevarria. The patient is clinically stable, chest pain free, stable for transfer. JOB# [id number] HERMELINDA/MANI
[2017-05-22] MEDS ORDERED: MORPHINE IV ONE (10:57)
[2017-05-22 13:23] VITALS: BP 163/79
--- NOTE | 2017-05-22 16:20 | Short Stay Summary ---
Short Stay Documentation Date of service: 05/22/17 - History H&P: obtained from office - Allergies and Medications Current Medications: Allergies No Known Allergies Allergy (Verified 08/06/16 08:34) Home Medications Medication Instructions Recorded Confirmed Last Taken Type Aspirin [Aspirin BABY CHEW TAB] 81 mg PO QDAY 04/07/13 05/22/17 05/21/17 History 81mg Atorvastatin [Lipitor] 40 mg PO QDAY 04/07/13 05/22/17 05/21/17 History 40mg Carvedilol [Coreg] 12.5 mg PO BID 04/07/13 05/22/17 05/21/17 History 12.5mg Lisinopril/Hydrochlorothiazide 1 tab PO QDAY 04/07/13 05/22/17 05/21/17 History [Zestoretic 20-12.5 mg] 1 tab Ranolazine [Ranexa] 1,000 mg PO QDAY 04/07/13 05/22/17 05/21/17 History 1000mg Tamsulosin 0.4 mg PO DAILY 12/15/16 05/22/17 05/21/17 History Docusate Sodium [Colace CAP] 100 mg PO BID 05/22/17 05/22/17 05/21/17 History 100mg Furosemide [Furosemide] 20 mg PO DAILY 05/22/17 05/22/17 05/21/17 History 20mg Potassium Chloride [Klor-Con M20] 20 meq PO DAILY 05/22/17 05/22/17 05/21/17 History 20meq - Brief post op/procedure progress note Date of procedure: 05/22/17 Pre-op diagnosis: chest pain Post-op diagnosis: other (CAD) Procedure: [facility] - see cath report Anesthesia: local Estimated blood loss: none Condition: stable - Disposition Condition at discharge: Stable Disposition: DC/TX-70 ANOTHER TYPE HLTHCARE - Discharge Diagnoses (1) CAD (coronary artery disease) Status: Chronic Qualifiers: Coronary Disease-Associated Artery/Lesion type: C [place] vs. transplanted heart: N Associated angina: A (2) Chest pain Status: Acute Qualifiers: Chest pain type: C Ischemic chest pain type: I (3) Stented coronary artery Status: Chronic (4) Diabetes Status: Chronic Qualifiers: Diabetes mellitus type: D Diabetes mellitus complication status: D Diabetes mellitus complication detail: D Diabetic retinopathy severity: D Proliferative retinopathy type: P Diabetes mellitus macular edema: D Diabetes mellitus exterminator insulin use: D Laterality: L Chronic kidney disease stage: C (5) Hypertension Status: Chronic Qualifiers: Hypertension type: H (6) Hyperlipidemia Status: Chronic Qualifiers: Hyperlipidemia type: H Short Stay Discharge Plan Activity: advance as tolerated Diet: low fat, low cholesterol, low salt Wound: open to air, keep clean and dry, per your surgeon's advice Follow up with: MAURICIO DELUCA MD [Primary Care Provider] - 7 [facility] - 7 Days
== END 2017-05-22 13:35 | disposition other institution (70) ==
LOC: CATHLABREC 06:09
PROVIDERS: ATTEND Internal Medicine
DX: I25.10 Atherosclerotic heart disease of native coronary artery without angina pectoris (principal); I25.82 Chronic total occlusion of coronary artery; E78.5 Hyperlipidemia, unspecified; I12.9 Hypertensive chronic kidney disease with stage 1 through stage 4 chronic kidney disease, or unspecified chronic kidney disease; E11.22 Type 2 diabetes mellitus with diabetic chronic kidney disease; N18.9 Chronic kidney disease, unspecified; E11.3519 Type 2 diabetes mellitus with proliferative diabetic retinopathy with macular edema, unspecified eye; Z79.4 Long term (current) use of insulin; Z95.5 Presence of coronary angioplasty implant and graft
CPT/HCPCS: 36415; 80048; 82962; 85025; 85610; 85730; 93005; 93010; 93458; 96374; C1769; C1894; J1644; J2250; J2270; J3010; J7040; Q9967

== ENCOUNTER 2017-12-21 09:26 | Observation (INO) | payer MEDICARE ==
[2017-12-21] MEDS ORDERED: HEPARIN 10,000 UNITS/10 ML ONE (09:56)
[2017-12-21] MEDS ORDERED: HEPARIN/NS 5000 UNIT/500ML(CATH LAB) 0 ML IR ONE (09:56)
[2017-12-21] MEDS ORDERED: CALAN ONE (09:56)
[2017-12-21] MEDS ORDERED: NITROGLYCERIN SYRINGE 0 ML ONE (09:57)
[2017-12-21] MEDS ORDERED: VERSED ONE (09:57)
[2017-12-21] MEDS ORDERED: XYLOCAINE 2% INFILTRATI ONE (09:57)
[2017-12-21] MEDS ORDERED: SUBLIMAZE ONE (09:57)
--- NOTE | 2017-12-21 10:03 | Emergency Department Report ---
ED Chest Pain HPI - General Chief Complaint: Chest Pain Stated Complaint: CHEST PAIN Time Seen by Provider: 12/21/17 09:46 Source: patient Mode of arrival: Ambulatory Limitations: No Limitations - History of Present Illness Initial Comments: Patient is a 87 years old male history of coronary artery disease status post CABG 6 months ago at [facility]. Patient presented to the ER complaining of left-sided chest pain started all of a sudden this morning. Patient describes his pain as pressure radiating to his left arm. Patient denied any shortness of breath. Code STEMI immediately called I discussed patient with Dr. Villar who reviewed the EKG stated that this is not a code STEMI, so code a STEMI cancelled. I Discussed the patient with Dr. Nascimento, he is in the ER evaluating the patient right now. MD Complaint: chest pain - Related Data Home Medications Medication Instructions Recorded Confirmed Last Taken Atorvastatin [Lipitor] 40 mg PO QDAY 04/07/13 12/21/17 12/20/17 Lisinopril/Hydrochlorothiazide 1 tab PO QDAY 04/07/13 12/21/17 12/20/17 [Zestoretic 20-12.5 mg] Tamsulosin 0.4 mg PO DAILY 12/15/16 12/21/17 12/20/17 Furosemide 20 mg PO DAILY 05/22/17 12/21/17 12/20/17 Carvedilol [Coreg] 3.125 mg PO BID 12/21/17 12/21/17 12/20/17 Clopidogrel Bisulfate [Plavix] 75 mg PO DAILY 12/21/17 12/21/17 12/20/17 Pantoprazole [Protonix] 40 mg PO QDAY 12/21/17 12/21/17 12/20/17 metFORMIN [Glucophage] 500 mg PO BID 12/21/17 12/21/17 12/20/17 Allergies Allergy/AdvReac Type Severity Reaction Status Date / Time No Known Allergies Allergy Verified 08/06/16 08:34 Heart Score - HEART Score History: Highly suspicious EKG: Significant ST-depression Age: > 65 Risk factors: > 3 risk factors or hx of atherosclerotic disease Troponin: < normal limit HEART Score: 8 - Critical Actions Critical Actions: >7 pts:50-65% risk of adverse cardiac event. Early invasive measures ED Review of Systems ROS: Stated complaint: CHEST PAIN Other details as noted in HPI Comment: All other systems reviewed and negative Constitutional: denies: chills, fever Respiratory: denies: cough, orthopnea, shortness of breath, SOB with exertion, SOB at rest, wheezing Cardiovascular: chest pain. denies: palpitations, dyspnea on exertion, orthopnea Gastrointestinal: denies: abdominal pain, nausea, vomiting, diarrhea, constipation, hematemesis, melena, hematochezia Musculoskeletal: denies: back pain, joint swelling Neurological: denies: headache, weakness, numbness, paresthesias, confusion ED Past Medical Hx - Past Medical History Previous Medical History?: Yes Hx Hypertension: Yes Hx CVA: No Hx Heart Attack/AMI: Yes Hx Congestive Heart Failure: No Hx Diabetes: Yes Hx Deep Vein Thrombosis: No Hx Pulmonary Embolism: No Hx GERD: No Hx Liver Disease: No Hx Renal Disease: No Hx Sickle Cell Disease: No Hx Arthritis: No Hx Headaches / Migraines: No Hx Seizures: No Hx Kidney Stones: No Hx Psychiatric Treatment: No Hx Asthma: No Hx COPD: No Hx Tuberculosis: No Hx Dementia: No Hx HIV: No Additional medical history: coronary artery disease - Surgical History Past Surgical History?: Yes Hx Coronary Stent: Yes (X1) Hx Open Heart Surgery: Yes Hx Pacemaker: No Hx Internal Defibrillator: No Hx Cholecystectomy: No Hx Appendectomy: No Hx Breast Surgery: No Additional Surgical History: bypass - Social History Smoking Status: Never Smoker Substance Use Type: Prescribed - Medications Home Medications: Home Medications Medication Instructions Recorded Confirmed Last Taken Type Atorvastatin [Lipitor] 40 mg PO QDAY 04/07/13 12/21/17 12/20/17 History Lisinopril/Hydrochlorothiazide 1 tab PO QDAY 04/07/13 12/21/17 12/20/17 History [Zestoretic 20-12.5 mg] Tamsulosin 0.4 mg PO DAILY 12/15/16 12/21/17 12/20/17 History Furosemide 20 mg PO DAILY 05/22/17 12/21/17 12/20/17 History Carvedilol [Coreg] 3.125 mg PO BID 12/21/17 12/21/17 12/20/17 History Clopidogrel Bisulfate [Plavix] 75 mg PO DAILY 12/21/17 12/21/17 12/20/17 History Pantoprazole [Protonix] 40 mg PO QDAY 12/21/17 12/21/17 12/20/17 History metFORMIN [Glucophage] 500 mg PO BID 12/21/17 12/21/17 12/20/17 History ED Physical Exam - General Limitations: No Limitations General appearance: alert, in no apparent distress - Head Head exam: Present: atraumatic, normocephalic, normal inspection - Eye Eye exam: Present: normal appearance, PERRL - ENT ENT exam: Present: normal exam, normal orophraynx, mucous membranes moist - Neck Neck exam: Present: normal inspection, full ROM. Absent: tenderness, meningismus, lymphadenopathy, thyromegaly - Respiratory Respiratory exam: Present: normal lung sounds bilaterally. Absent: respiratory distress, wheezes, rales, rhonchi, stridor, chest wall tenderness, accessory muscle use, decreased breath sounds, prolonged expiratory - Cardiovascular Cardiovascular Exam: Present: regular rate, normal rhythm, normal heart sounds - GI/Abdominal GI/Abdominal exam: Present: soft, normal bowel sounds. Absent: distended, tenderness, guarding, rebound, rigid, organomegaly, mass, bruit, pulsatile mass , hernia - Extremities Exam Extremities exam: Present: normal inspection, full ROM, normal capillary refill - Back Exam Back exam: Present: normal inspection, full ROM. Absent: tenderness, CVA tenderness (R), CVA tenderness (L), muscle spasm, paraspinal tenderness, vertebral tenderness - Neurological Exam Neurological exam: Present: alert, oriented X3, CN II-XII intact, normal gait - Skin Skin exam: Present: warm, intact, normal color ED Course Vital Signs 12/21/17 12/21/17 12/21/17 09:45 10:15 10:43 Temperature 97.6 F Pulse Rate 65 68 65 Respiratory 18 18 18 Rate Blood Pressure 157/65 Blood Pressure 189/83 172/84 169/83 [Right] O2 Sat by Pulse 98 98 99 Oximetry 12/21/17 12/21/17 12/21/17 12:21 12:28 12:37 Temperature 97.2 F L Pulse Rate 62 64 62 Respiratory 18 18 Rate Blood Pressure 174/73 Blood Pressure 163/84 143/71 [Right] O2 Sat by Pulse 97 98 Oximetry - Reevaluation(s) Reevaluation #1: 12/21/17 09:50 Code STEMI immediately called after I received the EKG at 09:32 AM. I discussed the patient was Dr. Villar and I transmitted the EKG to him. He stated that this is not a code STEMI according to his bleeding and I need to talk to his freight breaker Dr. Arambula. Reevaluation #2: 12/21/17 10:01 I discussed the patient is Dr. Nascimento, he is coming down to assist the patient in the ER.. 12/21/17 10:11 ED Medical Decision Making - Lab Data Result diagrams: 12/21/17 11:23 12/21/17 09:49 - EKG Data -: EKG Interpreted by Me EKG shows normal: sinus rhythm Rate: normal - EKG Data Interpretation: nonspecific ST-T wave angelica Critical Care Time: Yes Critical care time in (mins) excluding proc time.: 30 Critical care attestation.: If time is entered above; I have spent that time in minutes in the direct care of this critically ill patient, excluding procedure time. ED Disposition Clinical Impression: Chest pain Disposition: DC-09 OP ADMIT IP TO THIS HOSP Is pt being admited?: Yes Condition: Stable
[2017-12-21] MEDS ORDERED: BABY ASPIRIN PO ONE (10:15)
[2017-12-21] MEDS: PLAVIX PO SCH (10:23)
[2017-12-21 10:25] LABS: Basophils % (Auto) 0.5 % (0.0-1.8); Eosinophils # (Auto) 0.1 K/mm3 (0.0-0.4); Hemoglobin 13.8 gm/dl (11.8-15.2); Lymphocytes # (Auto) 1.6 K/mm3 (1.2-5.4); Lymphocytes % (Auto) 24.6 % (13.4-35.0); Mean Corpuscular HGB Conc 33 % (32-34); Mean Corpuscular Hemoglobin 33 pg (28-32); Mean Corpuscular Volume 101 fl (84-94); Monocytes # (Auto) 0.3 K/mm3 (0.0-0.8); Monocytes % (Auto) 5.3 % (0.0-7.3); Platelet Count 127 K/mm3 (140-440); Red Blood Count 4.16 M/mm3 (3.65-5.03); Red Cell Distribution Width 13.4 % (13.2-15.2)
[2017-12-21 10:30] LABS: INR 1.01 (0.87-1.13)
[2017-12-21 10:31] LABS: Partial Thromboplastin Time 32.6 Sec. (24.2-36.6)
[2017-12-21 10:46] LABS: Alanine Aminotransferase 8 units/L (7-56); Albumin 3.9 g/dL (3.9-5); BUN/Creatinine Ratio 18; Blood Urea Nitrogen 18 mg/dL (9-20); Hemolysis Index 8
[2017-12-21] MEDS ORDERED: HEPARIN 10,000 UNITS/10 ML IV ONE (11:08)
[2017-12-21] MEDS ORDERED: LASIX IV ONE (11:28)
[2017-12-21 11:37] LABS: Hematocrit 41.3 % (35.5-45.6); Hemoglobin 14.2 gm/dl (11.8-15.2)
--- NOTE | 2017-12-21 11:48 | Consultation ---
History of Present Illness Consult date: 12/21/17 Requesting physician: NGOC ALDRIDGE Consult reason: chest pain History of present illness: The pt is an 87 YO male with a past medical history significant for CAD s/p PCI of ramus with BMS in 10/2007, s/p CABG in 05/2017, HTN, HLP, DM. He is followed in our office by Dr. Ortiz. He presented with complaitns of chest pain. He reports that he went to sleep in his normal state of health last night. He awoke at 5AM this morning due to chest pain. He describes his chest pain as a constant, nonexertional, nonradiating, midsternal heaviness which was present for 30 minutes and then spontaneously resolved. He denies any SOB, palpitations , n/v, diaphoresis, dizziness or syncope. On evaluation, he denies any current chest pain. Pt underwent CABG x3 in 05/[address] Echevarria with CROWELL to LAD, saphenous vein graft to OM1 and saphenous vein graft to posterior descending artery. CELESTINE done 05/2017 showed EF >55%, trace TR. Past History Past Medical History: CAD, diabetes, hypertension, hyperlipidemia Past Surgical History: CABG Medications and Allergies Allergies Allergy/AdvReac Type Severity Reaction Status Date / Time No Known Allergies Allergy Verified 08/06/16 08:34 Home Medications Medication Instructions Recorded Confirmed Last Taken Type Atorvastatin [Lipitor] 40 mg PO QDAY 04/07/13 12/21/17 12/20/17 History Lisinopril/Hydrochlorothiazide 1 tab PO QDAY 04/07/13 12/21/17 12/20/17 History [Zestoretic 20-12.5 mg] Tamsulosin 0.4 mg PO DAILY 12/15/16 12/21/17 12/20/17 History Furosemide 20 mg PO DAILY 05/22/17 12/21/17 12/20/17 History Carvedilol [Coreg] 3.125 mg PO BID 12/21/17 12/21/17 12/20/17 History Clopidogrel Bisulfate [Plavix] 75 mg PO DAILY 12/21/17 12/21/17 12/20/17 History Pantoprazole [Protonix] 40 mg PO QDAY 12/21/17 12/21/17 12/20/17 History metFORMIN [Glucophage] 500 mg PO BID 12/21/17 12/21/17 12/20/17 History Active Meds: Active Medications Atorvastatin Calcium (Lipitor) 40 mg PO QHS [facility] Carvedilol (Coreg) 3.125 mg PO BID [facility] Clopidogrel Bisulfate (Plavix) 75 mg PO DAILY [facility] Furosemide (Lasix) 20 mg PO DAILY@0600 [facility] Heparin Sodium/Sodium Chloride (Heparin/ 0.45% Nacl-25,000 Unit/500 Ml) 25,000 unit in 500 mls @ 20 mls/hr IV TITRATE BROOKE; Protocol Lisinopril (Zestril) 20 mg PO DAILY [facility] Pantoprazole Sodium (Protonix) 40 mg PO QDAY [facility] Review of Systems Constitutional: no weight loss, no weight gain, no fever, no chills, no sweats Ears, nose, mouth and throat: no ear pain, no nose pain, no sinus pressure, no sinus pain Cardiovascular: chest pain, high blood pressure, no orthopnea, no palpitations, no rapid/irregular heart beat, no syncope, no lightheadedness, no shortness of breath, no dyspnea on exertion, no paroxysmal nocturnal dyspnea, no decreased exercise tolerance Respiratory: no cough, no shortness of breath, no dyspnea on exertion, no congestion, no wheezing, no pain on inspiration Genitourinary Male: no dysuria, no hematuria, no flank pain, no discharge, no urinary frequency, no urinary hesitancy Musculoskeletal: no neck stiffness, no neck pain, no shooting arm pain, no arm numbness/tingling, no low back pain, no shooting leg pain, no leg numbness/ tingling, no redness of joints Integumentary: no rash, no pruritis, no redness, no sores, no wounds Neurological: no head injury, no paralysis, no weakness, no parathesias, no numbness, no tingling, no seizures, no syncope Psychiatric: no anxiety Endocrine: no cold intolerance, no heat intolerance Hematologic/Lymphatic: no easy bruising, no easy bleeding, no lymphadenopathy Allergic/Immunologic: no urticaria, no wheezing, no persistent infections Physical Examination Vital Signs Temp Pulse Resp BP Pulse Ox 97.6 F 59 L 18 189/83 98 12/21/17 09:45 12/21/17 09:45 12/21/17 09:45 12/21/17 09:45 12/21/17 09:45 General appearance: no acute distress HEENT: Positive: PERRL, Normocephaly, Mucus Membranes Moist Neck: Positive: neck supple, trachea midline Cardiac: Positive: Reg Rate and Rhythm, S1/S2 Lungs: Positive: clear to auscultation Neuro: Positive: Grossly Intact, Cranial Nerve 2-12 Intact Abdomen: Positive: Soft. Negative: Tender Skin: Positive: Clear, Other (midsternal sternotomy scar ). Negative: Rash, Wound Musculoskeletal: No Pain, Normal Range of Motion Extremities: Present: edema (trace BLE) Results 12/21/17 11:23 12/21/17 09:49 Cardiac Enzymes 12/21/17 Range/Units 09:49 AST 17 (5-40) units/L Coagulation 12/21/17 Range/Units 09:49 PT 13.8 (12.2-14.9) Sec. INR 1.01 (0.87-1.13) APTT 32.6 (24.2-36.6) Sec. CBC 12/21/17 12/21/17 Range/Units 09:49 11:23 WBC 6.3 (4.5-11.0) K/mm3 RBC 4.16 (3.65-5.03) M/mm3 Hgb 13.8 14.2 (11.8-15.2) gm/dl Hct 42.0 41.3 (35.5-45.6) % Plt Count 127 L 113 L (140-440) K/mm3 Lymph # 1.6 (1.2-5.4) K/mm3 [place] # 0.3 (0.0-0.8) K/mm3 Eos # 0.1 (0.0-0.4) K/mm3 Baso # 0.0 (0.0-0.1) K/mm3 Comprehensive Metabolic Panel 12/21/17 Range/Units 09:49 Sodium 140 (137-145) mmol/L Potassium 3.8 (3.6-5.0) mmol/L Chloride 99.9 (98-107) mmol/L Carbon Dioxide 29 (22-30) mmol/L BUN 18 (9-20) mg/dL Creatinine 1.0 (0.8-1.5) mg/dL Glucose 109 H (75-100) mg/dL Calcium 10.0 (8.4-10.2) mg/dL AST 17 (5-40) units/L ALT 8 (7-56) units/L Alkaline Phosphatase 87 (35-129) units/L Total Protein 7.2 (6.3-8.2) g/dL Albumin 3.9 (3.9-5) g/dL - Imaging and Cardiology Echo: report reviewed (05/2017 showed EF >55%, trace TR) EKG: report reviewed, image reviewed EKG interpretations - Telemetry EKG Rhythm: Sinus Rhythm - EKG Sinus rhythms and dysrhythmias: sinus rhythm Chamber hypertrophy or enlargement: left ventricular hypertro Repolarization changes or abnormalities: ST or T wave suggestive of ischemia Assessment and Plan Initiate heparin gtt with initial bolus. Resume home cardiac regimen. Cont to trend cardiac enzymes. Pending Ruddy remain negative for AMI and pt remains chest pain free and clinically stable overnight, will plan to proceed with lexiscan MPI stress test in AM. NPO after MN. Assessment and plan reviewed with pt at bedside. The patient has been seen in conjunction with Dr. Nascimento who agrees with the assessment and plan of care. - Patient Problems (1) Unstable angina Current Visit: Yes Status: Acute (2) Abnormal ECG Current Visit: Yes Status: Acute (3) CAD (coronary artery disease) Current Visit: Yes Status: Chronic (4) S/P CABG x 3 Current Visit: Yes Status: Chronic (5) Hypertension Current Visit: Yes Status: Chronic (6) Diabetes Current Visit: Yes Status: Chronic (7) Hyperlipidemia Current Visit: Yes Status: Chronic
[2017-12-21 11:54] LABS: INR 1.07 (0.87-1.13)
[2017-12-21 11:55] LABS: Partial Thromboplastin Time 32.2 Sec. (24.2-36.6)
--- NOTE | 2017-12-21 11:57 | History and Physical Report ---
History of Present Illness Chief complaint: chest pain History of present illness: 87 YO Male with HTN, DE,HLD, CAD S/P CABG, Diverticulosis, Obesity, presents to ED for evaluation. Pt states that he has experienced sudden onset of pain in his chest. Pain awoke the patient from sleep at 0500hrs. Pain is 7/10, constant , nonradiating, located in the middle of the sternum, crushing, not worsened with exertion, not relieved with rest, resolved after about 30 minutes. Pt denies fever, chill, palpitations, syncope, prolonged travel/immobility, unilateral leg swelling, calf pain, hemoptysis, BRBPR, productive cough, diaphoresis, skin rash, or recent ill contacts. Pt seen and evaluated in ED and found to have symptoms consistent with ACS as well as diastolic CHF. Cardiology consulted in ED. Pt admitted to telemetry. Past History Past Medical History: CAD, hyperthyroidism, hyperlipidemia Past Surgical History: CABG Social history: . denies: smoking, alcohol abuse, prescription drug abuse Family history: hypertension Medications and Allergies Allergies Allergy/AdvReac Type Severity Reaction Status Date / Time No Known Allergies Allergy Verified 08/06/16 08:34 Home Medications Medication Instructions Recorded Confirmed Last Taken Type Atorvastatin [Lipitor] 40 mg PO QDAY 04/07/13 12/21/17 12/20/17 History Lisinopril/Hydrochlorothiazide 1 tab PO QDAY 04/07/13 12/21/17 12/20/17 History [Zestoretic 20-12.5 mg] Tamsulosin 0.4 mg PO DAILY 12/15/16 12/21/17 12/20/17 History Furosemide 20 mg PO DAILY 05/22/17 12/21/17 12/20/17 History Carvedilol [Coreg] 3.125 mg PO BID 12/21/17 12/21/17 12/20/17 History Clopidogrel Bisulfate [Plavix] 75 mg PO DAILY 12/21/17 12/21/17 12/20/17 History Pantoprazole [Protonix] 40 mg PO QDAY 12/21/17 12/21/17 12/20/17 History metFORMIN [Glucophage] 500 mg PO BID 12/21/17 12/21/17 12/20/17 History Active Meds: Active Medications Atorvastatin Calcium (Lipitor) 40 mg PO QHS [facility] Carvedilol (Coreg) 3.125 mg PO BID [facility] Clopidogrel Bisulfate (Plavix) 75 mg PO DAILY [facility] Furosemide (Lasix) 20 mg PO DAILY@0600 [facility] Heparin Sodium/Sodium Chloride (Heparin/ 0.45% Nacl-25,000 Unit/500 Ml) 25,000 unit in 500 mls @ 20 mls/hr IV TITRATE [facility]; Protocol Lisinopril (Zestril) 20 mg PO DAILY [facility] Pantoprazole Sodium (Protonix) 40 mg PO QDAY [facility] Review of Systems Constitutional: no weight loss, no weight gain, no fever, no chills Ears, nose, mouth and throat: no ear pain, no ear discharge, no tinnitis, no decreased hearing, no nose pain, no nasal congestion, no nasal discharge Exam - Constitutional Vitals: Temp Pulse Resp BP Pulse Ox 97.6 F 65 18 169/83 99 12/21/17 09:45 12/21/17 10:43 12/21/17 10:43 12/21/17 10:43 12/21/17 10:43 Results - Labs CBC & Chem 7: 12/21/17 11:23 12/21/17 09:49 Labs: Abnormal lab results 12/21/17 12/21/17 12/21/17 Range/Units 09:49 09:49 11:23 MCV 101 H (84-94) fl MCH 33 H (28-32) pg Plt Count 127 L 113 L (140-440) K/mm3 Glucose 109 H (75-100) mg/dL Assessment and Plan - Patient Problems (1) ACS (acute coronary syndrome) Current Visit: Yes Status: Acute Plan to address problem: Cardiology consulted in ED, serial cardiac enzymes, ekg, telemetry, morphine, supplemental oxygen, nitro, aspirin, (2) CHF (congestive heart failure) Current Visit: Yes Status: Acute Qualifiers: Heart failure type: diastolic Heart failure chronicity: acute Qualified Code(s): I50.31 - Acute diastolic (congestive) heart failure Plan to address problem: Cardiology consulted in ED, Echo, supplemental oxygen, BNP, Chest X ray,admit to telemetry (3) HLD (hyperlipidemia) Current Visit: Yes Status: Acute Qualifiers: Hyperlipidemia type: mixed hyperlipidemia Qualified Code(s): E78.2 - Mixed hyperlipidemia Plan to address problem: statin therapy, low cholesterol diet, (4) DVT prophylaxis Current Visit: Yes Status: Acute Plan to address problem: SCD to BLE while in bed.
[2017-12-21] MEDS ORDERED: SODIUM CHLORIDE FLUSH SYRINGE 10 ML IV PRN ×2 (11:58→12:00)
[2017-12-21] MEDS ORDERED: ZOFRAN IV PRN (11:58)
[2017-12-21] MEDS ORDERED: TYLENOL PO PRN (11:58)
[2017-12-21] MEDS ORDERED: PROVENTIL IH PRN (11:58)
[2017-12-21] MEDS ORDERED: NITROSTAT SL PRN (12:00)
[2017-12-21] MEDS: COREG PO SCH ×2 (12:21→21:46)
[2017-12-21] MEDS: HEPARIN/ 0.45% NACL-25,000 UNIT/500 ML 25,000 UNIT/500 ML BAG IV SCH ×2 (12:28→21:58)
--- NOTE | 2017-12-21 15:11 | XRay Report ---
Portable chest: Chest pain. The cardiac contour it may be slightly enlarged. There are bypass changes. The lungs are clear there is no vascular congestion. Compared to a prior exam in October 2008 the bypass changes are new and the cardiac contour and may be slightly larger. Impression: Borderline heart size.
[2017-12-21] MEDS ORDERED: ASPIRIN ONE (20:19)
[2017-12-21] MEDS: PEPCID PO SCH (21:48)
[2017-12-21] MEDS ORDERED: SODIUM CHLORIDE FLUSH SYRINGE 10 ML IV SCH (22:00)
[2017-12-22] MEDS ORDERED: LASIX PO SCH (06:00)
[2017-12-22] MEDS ORDERED: LEXISCAN IV ONE ×2 (08:16→08:19)
[2017-12-22] MEDS ORDERED: PROTONIX PO SCH (10:00)
--- NOTE | 2017-12-22 10:14 | Progress Note ---
Assessment and Plan atypical chest pain possible gi htn chol dm cad s/p cabg rec: add ppi and imdur 30mg daily and followup with dr. boyd in one week. with no significant ischemia noted on stress test. Subjective Date of service: 12/22/17 Principal diagnosis: chest pain Interval history: pt has been chest pain last 12 hours Objective Vital Signs Temp Pulse Resp BP BP Pulse Ox 12/22/17 04:28 98.3 F 64 18 120/56 93 12/21/17 23:22 97.8 F 67 18 133/63 94 12/21/17 23:00 95 12/21/17 22:00 98 12/21/17 21:46 74 150/74 12/21/17 20:09 98.2 F 63 18 150/74 95 12/21/17 19:16 64 12/21/17 17:41 97.9 F 63 18 164/71 142/69 94 12/21/17 17:31 164/71 95 12/21/17 17:21 164/71 95 12/21/17 17:11 164/71 97 12/21/17 17:00 164/71 95 12/21/17 16:51 163/66 95 12/21/17 16:41 163/66 96 12/21/17 16:30 97.9 F 64 16 142/69 96 12/21/17 16:21 163/66 95 12/21/17 16:11 154/77 96 12/21/17 16:01 154/77 97 12/21/17 15:51 154/77 98 12/21/17 15:40 154/77 96 12/21/17 15:31 154/77 97 12/21/17 15:29 154/77 97 18 15:00 95 12/21/17 13:00 63 16 154/77 97 12/21/17 12:51 67 16 143/71 98 12/21/17 12:41 70 16 143/71 97 12/21/17 12:37 62 18 143/71 98 12/21/17 12:30 64 17 143/71 98 12/21/17 12:28 97.2 F L 64 18 163/84 97 12/21/17 12:21 65 12 174/73 98 12/21/17 12:11 62 16 174/73 96 12/21/17 12:00 58 L 13 174/73 95 12/21/17 11:51 59 L 15 160/72 96 12/21/17 11:41 60 15 160/72 96 12/21/17 11:30 58 L 14 160/72 94 12/21/17 11:21 63 17 173/81 97 12/21/17 11:11 59 L 15 173/81 96 12/21/17 11:01 60 14 173/81 96 12/21/17 10:51 71 17 169/83 97 12/21/17 10:43 65 18 169/83 99 12/21/17 10:41 62 13 169/83 96 12/21/17 10:30 65 16 169/83 98 12/21/17 10:21 64 12 172/84 97 12/21/17 10:15 68 18 172/84 98 - Physical Examination HEENT: Positive: PERRL, Normocephaly, Mucus Membranes Moist Neck: Positive: neck supple, trachea midline Cardiac: Positive: Reg Rate and Rhythm Lungs: Positive: clear to auscultation Neuro: Positive: Grossly Intact, Cranial Nerve 2-12 Intact Abdomen: Positive: Soft. Negative: Tender Skin: Positive: Clear, Other (midsternal sternotomy scar ). Negative: Rash, Wound Musculoskeletal: No Pain, Normal Range of Motion Extremities: Present: edema (trace BLE) - Labs and Meds Cardiac Enzymes 12/21/17 Range/Units 09:49 AST 17 (5-40) units/L Coagulation 12/21/17 12/21/17 Range/Units 09:49 11:23 PT 13.8 14.5 (12.2-14.9) Sec. INR 1.01 1.07 (0.87-1.13) APTT 32.6 32.2 (24.2-36.6) Sec. CBC 12/21/17 12/21/17 Range/Units 09:49 11:23 WBC 6.3 (4.5-11.0) K/mm3 RBC 4.16 (3.65-5.03) M/mm3 Hgb 13.8 14.2 (11.8-15.2) gm/dl Hct 42.0 41.3 (35.5-45.6) % Plt Count 127 L 113 L (140-440) K/mm3 Lymph # 1.6 (1.2-5.4) K/mm3 [place] # 0.3 (0.0-0.8) K/mm3 Eos # 0.1 (0.0-0.4) K/mm3 Baso # 0.0 (0.0-0.1) K/mm3 Comprehensive Metabolic Panel 12/21/17 Range/Units 09:49 Sodium 140 (137-145) mmol/L Potassium 3.8 (3.6-5.0) mmol/L Chloride 99.9 (98-107) mmol/L Carbon Dioxide 29 (22-30) mmol/L BUN 18 (9-20) mg/dL Creatinine 1.0 (0.8-1.5) mg/dL Glucose 109 H (75-100) mg/dL Calcium 10.0 (8.4-10.2) mg/dL AST 17 (5-40) units/L ALT 8 (7-56) units/L Alkaline Phosphatase 87 (35-129) units/L Total Protein 7.2 (6.3-8.2) g/dL Albumin 3.9 (3.9-5) g/dL - Imaging and Cardiology EKG: report reviewed, image reviewed Pharmacologic stress test: report reviewed (no signficant ischemia fixed inferior defect ef 45%) Echo: report reviewed (05/2017 showed EF >55%, trace TR) - Telemetry EKG Rhythm: Sinus Rhythm - EKG Sinus rhythms and dysrhythmias: sinus rhythm Chamber hypertrophy or enlargement: left ventricular hypertro Repolarization changes or abnormalities: ST or T wave suggestive of ischemia
[2017-12-22] MEDS: COREG PO SCH (10:51)
[2017-12-22] MEDS: PEPCID PO SCH (10:52)
[2017-12-22] MEDS: PLAVIX PO SCH (10:52)
[2017-12-22] MEDS ORDERED: ZESTRIL PO SCH (11:12)
[2017-12-22 11:29] VITALS: BP 140/59
--- NOTE | 2017-12-22 12:30 | Discharge Summary ---
Providers - Providers Date of Admission: 12/21/17 11:58 Date of discharge: 12/22/17 Attending physician: TERRANCE YOO 12/21/17 Consult to Cardiac Rehabilitation [CONS] Routine Reason For Exam: Phase I 12/21/17 10:09 Consult to Physician [CONS] Stat Comment: Consulting Provider: LENCHO MARTINEZ Physician Instructions: Reason For Exam: chest pain, ? STEMI Primary care physician: CLINICAL REVIEW SPECIALIST Hospitalization Reason for admission: left-sided chest pain Condition: Stable Pertinent studies: Chest x-ray borderline heart size Myocardial perfusion nuclear scan; negative for reversible ischemia Hospital course: 87-year-old male patient with significant history of coronary artery disease status post PCI 2007 status post CABG 2016, hypertension and dyslipidemia and diabetes mellitus follows with [facility] was admitted through emergency room with left-sided chest pain. Evaluation by cardiology, underwent stress test which was negative for reversible ischemia Patient's medications were optimized Patient's chest pain is noncardiac probably secondary to gastroesophageal reflux disease. Today the patient is comfortable, denies chest pain shortness of breath Vital signs reviewed stable Physical examination unremarkable Cleared by cardiology, patient is stable at discharge Counseling done address diet modification and exercise as tolerated and weight reduction Discharge diagnoses; --Atypical chest pain/noncardiac/negative stress test --GERD --Hypertension --Coronary artery disease status post CABG --Dyslipidemia --Diverticulosis --Obesity BMI 32.3 --Type 2 diabetes mellitus Disposition: DC-01 TO HOME OR SELFCARE Time spent for discharge: 32 min Core Measure Documentation - Palliative Care Palliative Care/ Comfort Measures: Not Applicable - Core Measures Any of the following diagnoses?: none Exam - Constitutional Vitals: Temp Pulse Resp BP Pulse Ox 98.3 F 66 18 140/59 93 12/22/17 04:28 12/22/17 08:42 12/22/17 04:28 12/22/17 08:42 12/22/17 04:28 General appearance: Present: no acute distress, well-nourished, obese - EENT Eyes: Present: PERRL, EOM intact - Neck Neck: Present: supple, normal ROM - Respiratory Respiratory effort: normal Respiratory: bilateral: diminished, negative: rales, rhonchi, wheezing - Cardiovascular Rhythm: regular Heart Sounds: Present: S1 & S2 - Extremities Extremities: no ischemia, No edema - Abdominal General gastrointestinal: Present: soft, non-tender, non-distended, normal bowel sounds - Integumentary Integumentary: Present: clear, warm - Musculoskeletal Musculoskeletal: strength equal bilaterally - Psychiatric Psychiatric: appropriate mood/affect, cooperative - Neurologic Neurologic: CNII-XII intact, moves all extremities Plan Activity: no restrictions Diet: other (cardiac diet) Additional Instructions: If you have chest pain or shortness of breath, contact M.D. or go to emergency room Follow up with: PRIMARY MD PATRICK [Primary Care Provider] - 7 Days BARBARA WESLEY MD [Staff Physician] - 7 Days Prescriptions: ISOSORBIDE MONOnitrate [Imdur ER] 30 mg PO QDAY #30 tablet
--- NOTE | 2017-12-23 01:36 | Treadmill Report ---
NUCLEAR STUDY INDICATION FOR STUDY: For chest pain. IMAGING PROTOCOL: The patient received 10 mCi of Technetium 99m Tetrofosmin for resting image and 28 mCi of Technetium 99m Tetrofosmin for stress imaging. The imaging for the whole procedure was completed 30-90 minutes following the initial injection of Technetium 99m tetrofosmin. The SPECT imaging in the 180 degree arc was performed in the right anterior oblique projection. Computerized reconstruction of the images was performed for analysis. IMAGING RESULTS: Normal cavity size from stress to rest. Normal distribution of radionuclide in the anterior, inferior, septal, and apical regions. Gated SPECT, EF of 45% with small fixed inferior defect, but no significant ischemia noted. The patient infused Lexiscan with no EKG changes. SUMMARY: 1. Negative Lexiscan EKG. 2. No significant stress ischemia. 3. Small mild fixed inferior defect, but no significant ischemia with gated SPECT around 45%. JOB# [id number] RAÚL/MANI
[2017-12-23] MEDS ORDERED: IMDUR PO SCH (10:00)
== END 2017-12-22 13:34 | disposition home or self-care (01) ==
LOC: ED 09:26 → 4A 11:58 → INTOOBSV 11:58
PROVIDERS: ADMIT Internal Medicine; ATTEND Internal Medicine
DX: I24.9 Acute ischemic heart disease, unspecified (principal); I11.0 Hypertensive heart disease with heart failure; I50.31 Acute diastolic (congestive) heart failure; I25.10 Atherosclerotic heart disease of native coronary artery without angina pectoris; I25.2 Old myocardial infarction; E03.9 Hypothyroidism, unspecified; E78.5 Hyperlipidemia, unspecified; E11.9 Type 2 diabetes mellitus without complications; E66.9 Obesity, unspecified; Z68.32 Body mass index [BMI] 32.0-32.9, adult; Z95.1 Presence of aortocoronary bypass graft
CPT/HCPCS: 36415; 71045; 78452; 80053; 82962; 83880; 84484; 85014; 85018; 85025; 85049; 85379; 85520; 85610; 85730; 93005; 93010; 93017; 96374; 96375; 99285; A9270; A9502; G0378; J1644; J1940; J2785; J2250; J3010

== ENCOUNTER 2019-01-30 15:35 | Emergency (ER) | payer MEDICARE ==
--- NOTE | 2019-01-30 16:26 | Emergency Department Report ---
ED Chest Pain HPI - General Chief Complaint: Chest Pain Stated Complaint: CHEST PAIN/SAID Time Seen by Provider: 01/30/19 16:13 Source: EMS Mode of arrival: Stretcher Limitations: No Limitations - History of Present Illness Initial Comments: Mr. Alvarado is a 88 -year-old male with history of coronary artery disease status post CABG, diabetes mellitus, hypertension, dyslipidemia, who presents with palpitations and chest pain since last night. For the past 2 days he's had rapid heartbeat at home. He's had chest heaviness and tightness mild in sev erity. Radiates to the epigastric region. He recently was evaluated by his auto parts clerk Dr. Pruett this past month. He was given a good clean bill of health. Currently he is not any pain. He did have an episode of chest pain prior to arrival. He arrived per EMS. He lives with his . Never had palpitations to his recollection. MD Complaint: chest pain -: Gradual, days(s) (2) Onset: during rest Pain Location: substernal Severity: mild Severity scale (0 -10): 0 Quality: heaviness Consistency: now resolved Improves With: nothing Worsens With: nothing re: other (palpitations) - Related Data Home Medications Medication Instructions Recorded Confirmed Last Taken Atorvastatin [Lipitor] 40 mg PO QDAY 04/07/13 12/21/17 12/20/17 Lisinopril/Hydrochlorothiazide 1 tab PO QDAY 04/07/13 12/21/17 12/20/17 [Zestoretic 20-12.5 mg] Tamsulosin 0.4 mg PO DAILY 12/15/16 12/21/17 12/20/17 Furosemide 20 mg PO DAILY 05/22/17 12/21/17 12/20/17 Carvedilol [Coreg] 3.125 mg PO BID 12/21/17 12/21/17 12/20/17 Clopidogrel Bisulfate [Plavix] 75 mg PO DAILY 12/21/17 12/21/17 12/20/17 Pantoprazole [Protonix TAB] 40 mg PO QDAY 12/21/17 12/21/17 12/20/17 metFORMIN [Glucophage] 500 mg PO BID 12/21/17 12/21/17 12/20/17 Previous Rx's Medication Instructions Recorded Last Taken Type ISOSORBIDE MONOnitrate [Imdur ER] 30 mg PO QDAY #30 tablet 12/22/17 Unknown Rx Allergies Allergy/AdvReac Type Severity Reaction Status Date / Time No Known Allergies Allergy Verified 08/06/16 08:34 Heart Score - HEART Score History: Slightly suspicious EKG: Non-specific Age: > 65 Risk factors: 1-2 risk factors Troponin: < normal limit HEART Score: 4 ED Review of Systems ROS: Stated complaint: CHEST PAIN/SADI Other details as noted in HPI Comment: All other systems reviewed and negative Constitutional: denies: fever, malaise Respiratory: denies: cough Cardiovascular: chest pain, palpitations ED Past Medical Hx - Past Medical History Previous Medical History?: Yes Hx Hypertension: Yes Hx CVA: No Hx Heart Attack/AMI: Yes Hx Congestive Heart Failure: No Hx Diabetes: Yes Hx Deep Vein Thrombosis: No Hx Pulmonary Embolism: No Hx GERD: No Hx Liver Disease: No Hx Renal Disease: No Hx Sickle Cell Disease: No Hx Arthritis: No Hx Headaches / Migraines: No Hx Seizures: No Hx Kidney Stones: No Hx Psychiatric Treatment: No Hx Asthma: No Hx COPD: No Hx Tuberculosis: No Hx Dementia: No Hx HIV: No Additional medical history: coronary artery disease - Surgical History Hx Coronary Stent: Yes (X1) Hx Open Heart Surgery: Yes Hx Pacemaker: No Hx Internal Defibrillator: No Hx Cholecystectomy: No Hx Appendectomy: No Hx Breast Surgery: No Additional Surgical History: bypass - Social History Smoking Status: Never Smoker Substance Use Type: None - Medications Home Medications: Home Medications Medication Instructions Recorded Confirmed Last Taken Type Atorvastatin [Lipitor] 40 mg PO QDAY 04/07/13 12/21/17 12/20/17 History Lisinopril/Hydrochlorothiazide 1 tab PO QDAY 04/07/13 12/21/17 12/20/17 History [Zestoretic 20-12.5 mg] Tamsulosin 0.4 mg PO DAILY 12/15/16 12/21/17 12/20/17 History Furosemide 20 mg PO DAILY 05/22/17 12/21/17 12/20/17 History Carvedilol [Coreg] 3.125 mg PO BID 12/21/17 12/21/17 12/20/17 History Clopidogrel Bisulfate [Plavix] 75 mg PO DAILY 12/21/17 12/21/17 12/20/17 History Pantoprazole [Protonix TAB] 40 mg PO QDAY 12/21/17 12/21/17 12/20/17 History metFORMIN [Glucophage] 500 mg PO BID 12/21/17 12/21/17 12/20/17 History ISOSORBIDE MONOnitrate [Imdur ER] 30 mg PO QDAY #30 tablet 12/22/17 Unknown Rx ED Physical Exam - General Limitations: No Limitations General appearance: alert, in no apparent distress - Head Head exam: Present: atraumatic, normocephalic - Eye Eye exam: Present: normal appearance - ENT ENT exam: Present: mucous membranes moist - Neck Neck exam: Present: normal inspection, full ROM - Respiratory Respiratory exam: Present: normal lung sounds bilaterally. Absent: respiratory distress, wheezes, rales, rhonchi - Cardiovascular Cardiovascular Exam: Present: regular rate, normal rhythm, normal heart sounds. Absent: systolic murmur, diastolic murmur, rubs, gallop - GI/Abdominal GI/Abdominal exam: Present: soft, normal bowel sounds. Absent: distended, tenderness, rebound - Rectal Rectal exam: Present: deferred - Extremities Exam Extremities exam: Present: normal inspection - Back Exam Back exam: Present: normal inspection - Neurological Exam Neurological exam: Present: alert, oriented X3 - Psychiatric Psychiatric exam: Present: normal affect, normal mood - Skin Skin exam: Present: warm, dry, intact, normal color, other (sternotomy scar present). Absent: rash ED Course Vital Signs 01/30/19 01/30/19 01/30/19 15:53 15:54 16:00 Temperature 99 F Pulse Rate 67 72 68 Respiratory 14 13 18 Rate Blood Pressure 163/61 163/61 01/30/19 01/30/19 01/30/19 16:02 16:30 17:00 Temperature Pulse Rate 72 60 Respiratory 20 19 20 Rate Blood Pressure 132/59 157/59 ED Medical Decision Making - Lab Data Result diagrams: 01/30/19 16:37 01/30/19 16:37 Laboratory Results - last 24 hr 01/30/19 01/30/19 16:37 16:37 WBC 5.2 RBC 3.86 Hgb 13.4 Hct 40.0 MCV 104 H MCH 35 H MCHC 34 RDW 13.5 Plt Count 132 L Lymph % (Auto) 23.3 [place] % (Auto) 6.8 Eos % (Auto) 1.4 Baso % (Auto) 0.5 Lymph # 1.2 [place] # 0.4 Eos # 0.1 Baso # 0.0 Seg Neutrophils % 68.0 Seg Neutrophils # 3.6 Sodium 142 Potassium 3.6 Chloride 103.3 Carbon Dioxide 27 Anion Gap 15 BUN 17 Creatinine 1.1 Estimated GFR > 60 BUN/Creatinine Ratio 15 Glucose 166 H Calcium 9.8 Total Bilirubin 1.70 H AST 73 H ALT 37 Alkaline Phosphatase 105 Troponin T < 0.010 Total Protein 6.8 Albumin 3.5 L Albumin/Globulin Ratio 1.1 - EKG Data 01/30/19 17:05 EKG obtained 1606 Normal sinus rhythm rate 70 beats a minute with multiple PVCs nonspecific ST-T wave pattern and no significant ST elevation no indication of acute ischemia or infarct - Medical Decision Making Mr. Alvarado is a very pleasant 88 yo male who presents with palpitations due to PVCs. Has atypical chest pain. I do not detect acute coronary syndrome is present today. I have spoken with auto parts clerk senior management consultant for [facility] to arrange appointment this week. Mr. Alvarado understands to call 911 if his symptoms return. He is very concerned for chronic cough. He is awaiting changes medication by his PCP and auto parts clerk. Critical care attestation.: If time is entered above; I have spent that time in minutes in the direct care of this critically ill patient, excluding procedure time. ED Disposition Clinical Impression: PVCs (premature ventricular contractions), Chest pain, S/P CABG x 3 Disposition: DC-01 TO HOME OR SELFCARE Is pt being admited?: No Does the pt Need Aspirin: No Condition: Stable Instructions: Premature Ventricular Contractions (ED) Referrals: BARBARA WESLEY MD [Staff Physician] - 2-3 Days
[2019-01-30 17:07] LABS: Basophils % (Auto) 0.5 % (0.0-1.8); Eosinophils # (Auto) 0.1 K/mm3 (0.0-0.4); Eosinophils % (Auto) 1.4 % (0.0-4.3); Hemoglobin 13.4 gm/dl (11.8-15.2); Lymphocytes # (Auto) 1.2 K/mm3 (1.2-5.4); Lymphocytes % (Auto) 23.3 % (13.4-35.0); Mean Corpuscular HGB Conc 34 % (32-34); Mean Corpuscular Volume 104 fl (84-94); Monocytes # (Auto) 0.4 K/mm3 (0.0-0.8); Monocytes % (Auto) 6.8 % (0.0-7.3); Platelet Count 132 K/mm3 (140-440); Red Blood Count 3.86 M/mm3 (3.65-5.03); Red Cell Distribution Width 13.5 % (13.2-15.2)
--- NOTE | 2019-01-30 17:31 | XRay Report ---
PROCEDURE: XR CHEST 1V AP TECHNIQUE: Chest radiograph single view. HISTORY: Chest Pain COMPARISONS: 12/21/2017 . FINDINGS: Heart: Normal. Mediastinum/Vessels: Normal. Lungs/Pleural space: No infiltrate, effusion, or pneumothorax. Bony thorax: No acute osseous abnormality. Life support devices: None. IMPRESSION: No radiographic evidence of acute cardiopulmonary abnormality. This document is electronically signed by Tana Bruno MD., January 30 2019 05:29:24 PM ET
[2019-01-30 17:44] LABS: Alanine Aminotransferase 37 units/L (7-56); Albumin 3.5 g/dL (3.9-5); BUN/Creatinine Ratio 15; Blood Urea Nitrogen 17 mg/dL (9-20); Calcium 9.8 mg/dL (8.4-10.2); Hemolysis Index 10
[2019-01-30 18:32] VITALS: BP 151/64
== END 2019-01-30 18:35 | disposition home or self-care (01) ==
LOC: ED 15:35
DX: I49.3 Ventricular premature depolarization (principal); I10 Essential (primary) hypertension; I25.2 Old myocardial infarction; E11.9 Type 2 diabetes mellitus without complications; Z95.1 Presence of aortocoronary bypass graft; Z79.84 Long term (current) use of oral hypoglycemic drugs; Z95.5 Presence of coronary angioplasty implant and graft
CPT/HCPCS: 36415; 71045; 80053; 84484; 85025; 93005; 93010